=== PATIENT | male | born 1985 | race Caucasian/White ===

== ENCOUNTER 2018-10-16 11:54 | Emergency (ER) | payer SELFPAY ==
[~2018-10-16] VITALS: Ht 162.6 cm; Wt 97.4 kg
[2018-10-16 12:46] VITALS: BP 143/73; PULSE 70; RESP 20; Ht 162.6 cm; Wt 97.4 kg
[2018-10-16] MEDS ORDERED: KETOROLAC 60 MG INJ IM STA (15:11)
[2018-10-16] MEDS ORDERED: DIPHENHYDRAMINE 50 MG CAP PO ONE (15:30)
[2018-10-16] MEDS ORDERED: DEXAMETHASONE 10 MG/ML 1 ML INJ IM ONE (15:30)
[2018-10-16] MEDS ORDERED: METHYLPREDNISOLONE ACET 80 MG/ML 1 ML IM ONE (15:30)
[2018-10-16] MEDS ORDERED: ACET500C5 PO (15:57)
[2018-10-16] MEDS ORDERED: NAPR-985 PO (15:57)
[2018-10-16] MEDS ORDERED: METHYLPREDNISOLONE ACET 40 MG/ML 1 ML IM ONE (16:00)
--- NOTE | 2018-10-16 16:08 | ERD ---
ER Documentation Chief Complaint Chief Complaint COOLEY x1 month; dizzy occassional- pt not in distress HPI 32 year-old male coming in today with Chief Complaint: Headache History of Present Illness: Patient coming in today with complaint of headache for 1 month, nonprogressive, and unchange. Quality described as pressure, throbbing, sharp; patient reports headache with different type of quality-like symptoms. Associated symptoms include occasional dizziness, photophobia, phonophobia. Patient denies any other associated symptoms. Patient tolerating p.o. fluids and food without difficulty. Denies any type of irritability, confusion, altered mental status, neuro deficits. She reports new baby at home, and reports being more irritable and with headaches. Patient reports using acetaminophen at home pain usually getting some relief with medication. Patient has been taking Motrin at 7 PM last night, and that did help with the pain is some. Review of systems: All systems were reviewed and are negative except for what is indicated in the history of present illness. Past Medical History: Negative for hypertension, diabetes or other medical problems; left wrist surgery Social History: Patient denies tobacco, alcohol, elicit drug use Medications: None Allergies: Penicillin Social Concerns: Denies ROS All systems reviewed and are negative except as per history of present illness. Medications Home Meds Active Scripts Acetaminophen* (Tylophen*) 500 Mg Capsule, 2 CAP PO Q8H PRN for PAIN AND OR ELEVATED TEMP, #20 CAP Prov:FAROOQ SOTO NP 10/16/18 Naproxen* (Naprosyn*) 500 Mg Tablet, 500 MG PO BID PRN for PAIN AND/OR IN FLAMMATION, #30 TAB Prov:FAROOQ SOTO NP 10/16/18 Allergies Allergies: Coded Allergies: Penicillins (Verified Allergy, Unknown, 10/16/18) PMhx/Soc Medical and Surgical Hx: pt denies Medical Hx, pt denies Surgical Hx Hx Alcohol Use: No Hx Substance Use: No Hx Tobacco Use: No Smoking Status: Never smoker FmHx Family History: diabetes, coronary disease Physical Exam Vitals Vital Signs Date Temp Pulse Resp B/P (MAP) Pulse Ox O2 O2 Flow FiO2 Time Delivery Rate 10/16/18 98.5 70 20 143/73 98 12:46 (96) Physical Exam Const: No acute distress, speaking in clear sentences and answering questions appropriately Head: Atraumatic Eyes: Normal Conjunctiva ENT: Normal External Ears, Nose and Mouth. Neck: Full range of motion. No meningismus. Resp: Clear to auscultation bilaterally Cardio: Regular rate and rhythm, no murmurs Abd: Soft, non tender, non distended. Normal bowel sounds Skin: No petechiae or rashes Back: No midline or flank tenderness Ext: No cyanosis, or edema. Neuro exam unremarkable. No neuro deficits noted. Neur: Awake and alert Psych: Normal Mood and Affect Results 24 hrs Current Medications Medications Dose Sig/Emilia Start Time Status Last (Trade) Ordered Route PRN Stop Time Admin Dose Reason Admin 80 mg ONCE ONCE 10/16/18 DC Methylprednis IM 15:30 olone 10/16/18 15:31 Acetate (Depo-Medrol 80 Mg/ml 1 ml) Ketorolac 60 mg ONCE STAT 10/16/18 DC 10/16/18 Tromethamine IM 15:11 15:24 (Toradol) 10/16/18 15:14 8 mg ONCE ONCE 10/16/18 DC 10/16/18 Dexamethasone IM 15:30 15:23 (Decadron) 10/16/18 15:31 50 mg ONCE ONCE 10/16/18 DC 10/16/18 Diphenhydrami PO 15:30 15:24 ne HCl 10/16/18 15:31 (Benadryl) 80 mg ONCE ONCE 10/16/18 DC 10/16/18 Methylprednis IM 16:00 15:49 olone 10/16/18 16:01 Acetate (Depo-Medrol 40 Mg/ml 1 ml) Procedures/MDM ED course includes a thorough examination and history. ED course includes medication; prednisolone and dexamethasone and Toradol and tramadol. Patient offered IV fluids and migraine cocktail, the patient refused due to time constraint. Reports he will come back if headache does not go away with these medications tried. Low suspicion for life-threatening medical emergency or neurological medical emergency requiring hospitalization Otherwise healthy patient presenting with constellation of symptoms likely representing headache possibly migraine or tension headache as characterized by history, physical exam findings . No respiratory distress, otherwise relatively well appearing and nontoxic. Patient educated on diagnoses, prescriptions (naproxen and acetaminophen), follow-up care, return precautions. Strict return precautions given for worsening condition; questions answered discharge. Disposition for discharge with followup in 2 days with PCP/clinic for reevaluation of symptoms. Departure Diagnosis: Primary Impression: Headache Headache type: unspecified Headache chronicity pattern: unspecified pattern Intractability: intractable Qualified Codes: R51 - Headache Condition: Stable Patient Instructions: Self-Care for Headaches Additional Instructions: Call your primary care doctor TOMORROW for an appointment during the next 2-3 days.See the doctor sooner or return here if your condition worsens before your appointment time. Although you refused full treatment plan, it is important to return to ER. Any signs of nausea, vomiting, worsening of your life, syncopal episodes, acute bronchitis, inability to walk as normal. It is also important to follow-up with primary care doctor for further evaluation and for reassessment treatment given in ER today. FAROOQ SOTO NP Oct 16, 2018 16:08
== END 2018-10-16 16:29 | disposition home or self-care (01) ==
LOC: FTE 11:54
DX: R51 Headache (principal)
CPT/HCPCS: 96372; 99284; J1030; J1100; J1885; J1040

== ENCOUNTER 2019-05-27 10:30 | Emergency (ER) | payer OTHER ==
[~2019-05-27] VITALS: Ht 167.6 cm; Wt 101.7 kg
[~2019-05-27 10:30] MED LIST: ACET500C5 PO; CYCL10TA7 PO; HYDR-4011 PO; IBUP800T48 PO; NAPR-985 PO
[2019-05-27 10:34] VITALS: BP 131/69; PULSE 85; RESP 17; Ht 167.6 cm; Wt 101.7 kg
[2019-05-27] MEDS ORDERED: KETOROLAC 30 MG INJ IM STA (11:49)
[2019-05-27] MEDS ORDERED: HYDROCODONE/APAP (5/325) TAB PO ONE (12:00)
== END 2019-05-27 12:49 | disposition home or self-care (01) ==
LOC: FTE 10:30
DX: M54.5 Low back pain (principal)
CPT/HCPCS: 96372; J1885; Z7502; Z7610